=== PATIENT | female | born 1965 | race Caucasian/White ===

== ENCOUNTER → 2017-01-10 | Outpatient (CLI) | payer SELFPAY ==
--- NOTE | 2017-01-10 14:26 | DI ---
EXAM: US THYROID LOCATION OF DICTATION: [place] HISTORY: ITS.REASON: E05.90 HYPERTHYROIDISM COMPARISON: No prior studies available for comparison. FINDINGS: The thyroid lobe is heterogeneous and demonstrates diffusely increased vascularity suggestive of thyroiditis. The right lobe measures 4.8 x 1.3 x 1.4 cm, the left lobe measures 3.9 x 1.2 x 1.6 cm and the isthmus is 0.3 cm in thickness. No abnormal soft tissues masses or fluid collections are seen around the thyroid. IMPRESSION: Heterogeneous thyroid gland with increased vascularity. These findings can be associated with thyroiditis. Clinical laboratory correlation recommended. .
== END ==
LOC: IMA 12:52
PROVIDERS: ATTEND Nurse Practitioner
DX: E05.90 Thyrotoxicosis, unspecified without thyrotoxic crisis or storm (principal); E07.89 Other specified disorders of thyroid